=== PATIENT | female | born 1950 | race Caucasian/White ===

== ENCOUNTER → 2024-04-26 06:14 | Outpatient (REF) | payer MEDICARE, OTHER, SELFPAY ==
[2024-04-26 10:00] LABS: % Basophils 0.9 % (0-2); % Eosinophils 1.5 % (0-6); % Immature Granulocytes 0.5 % (0-0.5); % Lymphocytes 44.5 % (20.5-51.1); % Monocytes 5.3 % (1.7-9.3); % Neutrophils 47.3 % (42.2-75.2); ALT (SGPT) 48 U/L (0-35); AST (SGOT) 33 U/L (14-36); Absolute Basophils 0.1 10^3/uL (0-0.2); Absolute Eosinophils 0.2 10^3/uL (0-0.7); Absolute Immature Granulocytes 0.1 10^3/uL (0-0.05); Absolute Lymphocytes 4.8 10^3/uL (1.2-3.4); Absolute Monocytes 0.6 10^3/uL (0.1-0.6); Absolute Neutrophils 5.1 10^3/uL (1.4-6.5); Alkaline Phosphatase 68 U/L (38-126); Blood Urea Nitrogen 17 mg/dl (7-17); Carbon Dioxide 21 mmol/L (22-30); Chloride 98 mmol/L (98-107); Glucose 185 mg/dl (70-99); HDL Cholesterol 58 mg/dl; Hematocrit 39.9 % (37.0-47.0); Hemoglobin 13.6 g/dL (12.0-16.0); LDL Cholesterol, Calculated 46 mg/dl; Mean Corp Hgb Conc. 34.1 g/dL (33.0-37.0); Mean Corpuscular Hgb 28.7 pg (27.0-31.0); Mean Corpuscular Volume 84.2 fL (81.0-99.0); Mean Platelet Volume 9.3 fL (7.4-10.4); Nucleated Red Blood Cells % 0 %; Platelet Count 422 10^3/uL (130-400); Potassium 4.7 mmol/L (3.5-5.1); Red Blood Cell Count 4.74 10^6/uL (4.20-5.40); Red Cell Dist. Width 13.1 % (11.5-14.5); Sodium 133 mmol/L (135-145); Total Bilirubin 0.4 mg/dl (0.2-1.3); Total Cholesterol 129 mg/dl (50-199); Total Protein 7.6 g/dl (6.3-8.2); Triglyceride 125 mg/dl (10-149); Very Low Density Lipoprotein 25 mg/dl (0-30); White Blood Cell Count 10.7 10^3/uL (4.8-10.8); eGFR > 60.00
[2024-04-26 10:41] LABS: Microalbumin, Random Urine 0.9 mg/dl (0.6-1.7); Microalbumin/creatinine Ratio 18.8 mg/g
[2024-04-26 10:49] LABS: Glycohemoglobin (HgbA1c) 7.7 % (4.0-5.6)
== END ==
LOC: HWLAB 06:14
PROVIDERS: ATTENDING PHYSICIAN Internal Medicine
DX: Z85.828 Personal history of other malignant neoplasm of skin (principal); Z12.11 Encounter for screening for malignant neoplasm of colon; E11.9 Type 2 diabetes mellitus without complications; E78.5 Hyperlipidemia, unspecified
CPT/HCPCS: 36415; 80053; 80061; 82043; 82570; 83036; 85025

== ENCOUNTER → 2024-11-01 07:55 | Outpatient (REF) | payer MEDICARE, OTHER, SELFPAY ==
[2024-11-01 09:34] LABS: ALT (SGPT) 38 U/L (0-35); AST (SGOT) 33 U/L (14-36); Albumin 4.9 g/dl (3.5-5.0); Alkaline Phosphatase 64 U/L (38-126); Blood Urea Nitrogen 15 mg/dl (7-17); Calcium 9.5 mg/dl (8.4-10.2); Carbon Dioxide 22 mmol/L (22-30); Chloride 94 mmol/L (98-107); Glucose 184 mg/dl (70-99); HDL Cholesterol 50 mg/dl; LDL Cholesterol, Calculated 28 mg/dl; Potassium 4.6 mmol/L (3.5-5.1); Sodium 130 mmol/L (135-145); Total Bilirubin 0.4 mg/dl (0.2-1.3); Total Cholesterol 100 mg/dl (50-199); Total Protein 7.5 g/dl (6.3-8.2); Triglyceride 114 mg/dl (10-149); Very Low Density Lipoprotein 22 mg/dl (0-30); eGFR > 60.00
[2024-11-01 10:23] LABS: Glycohemoglobin (HgbA1c) 9.8 % (4.0-5.6)
== END ==
LOC: HWLAB 07:55
PROVIDERS: ATTENDING PHYSICIAN Internal Medicine
DX: E78.5 Hyperlipidemia, unspecified (principal); E11.9 Type 2 diabetes mellitus without complications
CPT/HCPCS: 36415; 80053; 80061; 83036

== ENCOUNTER → 2024-11-02 12:25 | Outpatient (REF) | payer MEDICARE, OTHER, SELFPAY | LOC: HWRAD 12:25 | PROVIDERS: ATTENDING PHYSICIAN Internal Medicine | DX: E87.1 Hypo-osmolality and hyponatremia (principal) | CPT/HCPCS: 71046 ==

== ENCOUNTER → 2024-12-07 08:39 | Outpatient (REF) | payer MEDICARE, OTHER, SELFPAY ==
[2024-12-07 12:59] LABS: Osmolality Serum 272 mOsm/kg (275-300)
[2024-12-07 13:10] LABS: Blood Urea Nitrogen 17 mg/dl (7-17); Calcium 9.2 mg/dl (8.4-10.2); Carbon Dioxide 21 mmol/L (22-30); Chloride 95 mmol/L (98-107); Glucose 170 mg/dl (70-99); Potassium 4.5 mmol/L (3.5-5.1); Sodium 128 mmol/L (135-145); eGFR > 60.00
[2024-12-07 13:24] LABS: Osmolality Urine 307 mOsm/kg (300-900)
== END ==
LOC: HWLAB 08:39
PROVIDERS: ATTENDING PHYSICIAN Internal Medicine
DX: E87.1 Hypo-osmolality and hyponatremia (principal); M54.16 Radiculopathy, lumbar region
CPT/HCPCS: 36415; 72110; 80048; 83930; 83935

== ENCOUNTER → 2024-12-09 09:40 | Outpatient (REF) | payer MEDICARE, OTHER, SELFPAY | LOC: HWRAD 09:40 | PROVIDERS: ATTENDING PHYSICIAN Internal Medicine | DX: M81.0 Age-related osteoporosis without current pathological fracture (principal); Z12.31 Encounter for screening mammogram for malignant neoplasm of breast | CPT/HCPCS: 77063; 77067; 77080 ==

== ENCOUNTER → 2024-12-17 08:33 | Outpatient (REF) | payer MEDICARE, OTHER, SELFPAY ==
[2024-12-17 12:09] LABS: Sodium 131 mmol/L (135-145)
== END ==
LOC: HWLAB 08:33
PROVIDERS: ATTENDING PHYSICIAN Internal Medicine
DX: E87.1 Hypo-osmolality and hyponatremia (principal)
CPT/HCPCS: 36415; 84295

== ENCOUNTER → 2024-12-23 11:55 | Outpatient (REF) | payer MEDICARE, OTHER, SELFPAY ==
[2024-12-23 15:33] LABS: Blood Urea Nitrogen 28 mg/dl (7-17); Calcium 10.5 mg/dl (8.4-10.2); Carbon Dioxide 25 mmol/L (22-30); Chloride 100 mmol/L (98-107); Glucose 117 mg/dl (70-99); Potassium 4.7 mmol/L (3.5-5.1); Sodium 137 mmol/L (135-145); eGFR > 60.00
[2024-12-23 15:50] LABS: Urine Sodium 74 mmol/L (30-90)
[2024-12-23 16:02] LABS: Cortisol, Random 7.3 ug/dl; TSH Reflex To Free T4 2.91 uIU/ml (0.47-4.68)
[2024-12-26 01:33] LABS: Aldosterone, Serum 6.3 ng/dL
== END ==
LOC: HWLAB 11:55
PROVIDERS: ATTENDING PHYSICIAN Internal Medicine Nephrology; FAMILY PHYSICIAN Internal Medicine
DX: E87.1 Hypo-osmolality and hyponatremia (principal)
CPT/HCPCS: 36415; 80048; 82088; 82533; 84300; 84443

== ENCOUNTER → 2025-03-25 06:51 | Outpatient (REF) | payer MEDICARE, OTHER, SELFPAY | LOC: HWRAD 06:51 | PROVIDERS: ATTENDING PHYSICIAN Internal Medicine Gastroenterology; FAMILY PHYSICIAN Internal Medicine | DX: K76.0 Fatty (change of) liver, not elsewhere classified (principal) | CPT/HCPCS: 76700 ==

== ENCOUNTER → 2025-06-15 08:17 | Outpatient (REF) | payer MEDICARE, OTHER, SELFPAY ==
[2025-06-15 10:54] LABS: Blood Urea Nitrogen 19 mg/dl (7-17); Calcium 9.9 mg/dl (8.4-10.2); Carbon Dioxide 24 mmol/L (22-30); Chloride 100 mmol/L (98-107); Glucose 163 mg/dl (70-99); Potassium 4.9 mmol/L (3.5-5.1); Sodium 134 mmol/L (135-145); eGFR > 60.00
[2025-06-15 11:16] LABS: Glycohemoglobin (HgbA1c) 7.7 % (4.0-5.6)
== END ==
LOC: HWLAB 08:17
PROVIDERS: ATTENDING PHYSICIAN Internal Medicine Nephrology; FAMILY PHYSICIAN Internal Medicine
DX: E87.1 Hypo-osmolality and hyponatremia (principal); E11.65 Type 2 diabetes mellitus with hyperglycemia
CPT/HCPCS: 36415; 80048; 83036

== ENCOUNTER 2025-06-24 06:20 | Day surgery (SDC) | payer MEDICARE, OTHER, SELFPAY ==
[2025-06-24 07:19] LABS: Glucose - Point of Care 166 mg/dl (70-99)
== END 2025-06-24 09:07 | disposition home or self-care (01) ==
LOC: GI 06:20
PROVIDERS: ATTENDING PHYSICIAN Internal Medicine Gastroenterology; FAMILY PHYSICIAN Internal Medicine
DX: Z12.11 Encounter for screening for malignant neoplasm of colon (principal); D12.3 Benign neoplasm of transverse colon; K63.5 Polyp of colon; K63.89 Other specified diseases of intestine; K57.30 Diverticulosis of large intestine without perforation or abscess without bleeding
CPT/HCPCS: 45385; 45380; 82962; 88305

== ENCOUNTER → 2025-06-27 09:04 | Outpatient (REF) | payer MEDICARE, OTHER, SELFPAY ==
--- NOTE | 2025-06-28 12:20 | PN.DIAED04 ---
Education Record
- Education Record
Class Attended: Other (Initial DSME Asseessment)
Instructor: Nurse Practitioner (HETAL Solorio)
Pre-Program Knowledge: Needs review / Assistance
Pre-Test Score (%): 70
Goals
- Goal 1
Being Active: Other (Add resistance workouts with a marine mammal trainer at gym )
Healthy Eating: Make better food choices, Reduce portion sizes
Monitoring: Monitor more often (add in extra glucose readings to identify areas where glucose may be elevated)
Goals To Be Evaluated: Other. Make better food choices. Reduce portion sizes. Monitor more often
Post-Program Assessment
- Goals 1 Evaluation
Goals To Be Evaluated: other
- Goals 2 Evaluation
Goals To Be Evaluated: Make better food choices. Reduce portion sizes
- Goals 3 Evaluation
Goals To Be Evaluated: Monitor more often
--- NOTE | 2025-06-28 12:24 | PN.DIAED14 ---
This is to notify you that your patient with diabetes, DORA TAVAREZ ( 1950), has enrolled in our diabetes self-management classes that are being held at [facility].
These classes will include an introduction to diabetes, diet, medication, exercise and prevention of complications. At the end of our class series, you will receive a report of your patient's participation and progress for your records.
Please contact me at the Diabetes Center, , if there is any particular information regarding your patient that might be helpful to me.
Sincerely,
Tyler FONG-LEILA, [facility]
--- NOTE | 2025-06-28 12:24 | PN.DIAED04 ---
Education Record
- Education Record
Class Attended: Class 1
DSME Class Series Code: [id number]
Instructor: Nurse Practitioner (HETAL Solorio)
Class Curriculum:
Outpatient Diabetes Education Program:
Class 1 (120 minutes)
Describe the diabetes disease process and treatment options
Diabetes management
Develop personal strategies to promote health and behavior change
Integrate psychosocial adjustment for daily living
Monitor blood glucose and other parameters. Interpret and use the results for self-management decision making
Prevent, detect, and treat acute complications
Class Length (mins): 120
Post-Class 1 Test Score (%): 88
--- NOTE | 2025-06-29 17:02 | PN.DIAED02 ---
Referral
DSME Class Series Code: [id number]
Referred For: Diabetes Self-Management Training, Gestational Diabetes Self-Management Training, Management of Diabetes During , Medical Nutrition Therapy, Self-Blood Glucose Monitoring, Long-Term Complication Instruction, Accute
Complication Instruction, Continuous Glucose Monitoring, Medication management, Insulin Instruction, Care Coordination, Disease Management
PHI Release Authorization Form Signed: Yes
Demographic
Patient's primary language-: Yemeni
Education: College degree
Occupation: Retired
- Social
Primary Support Person: Self
Primary Care Takers: Self
Living Arrangements: Self
- Learning Methods
Preferred Method: Lecture/audio, Hands-on demonstration, Group discussion
Barriers to Learning: None
Glycemic Control
- Blood Glucose Monitoring Assessment
Date: 11/01/24 (185 mg/dL FBS)
Blood glucose monitoring at home: Yes (ACCUCHEK GUIDE)
Monitor Brands: Accu-Chek
Frequency: 2x per day
Time: fasting, after lunch, before dinner
- Hypoglycemia Assessment
Patient carries glucose source: No
Patient experiences hypoglycemia: No
- Blood Glucose Monitoring Results
Source: self-report (states FBS < 130 mg/dL and post prandial < 100 mg/dL)
- Hemoglobin A1c
Date: 11/01/24
A1C Percentage (%): 9.8
Medical History of Diabetes
Family Diabetes History: Mother, Father
Previous Diabetes Education: No
Previous visit with Dietitian: No
Complications/Comorbidity/Specialist: Cataracts, Hypertension (Valsartan 160 mg QD), Hyperlipidemia (Simvastatin 40 mg QD), Metabolic (Repaglinide 0.5 mg TID), Other / symptoms (hyponatremia - current fluid restriction 32 oz/day)
Measures
- Anthropometrics
Height: 5 ft 1 in
Actual Weight: 147 lb
- Blood Pressure / Pulse
Blood pressure: 136/84
Pulse: 81
- Diabetes Management
Medical Management for Diabetes: Complete physical exam (11/02/2024), Dental exam (08/12/2024), Dilated eye exam (12/07/2024), Pneumonia vaccination (01/23/2022), Other (Covid vax 03/08/2022)
Self-Care
- Tobacco Usage
Do you now, or have you ever smoked?: Never smoked
- Alcohol & Drugs Usage
Drinks Alcohol: Yes
Amount/day: Social Occasions
- Meals & Dining
Meals & Dining: Patient skips meals: Yes, Food Intolerance / Allergy: No, Cultural / Tenriism Dietary Needs: No
Primary Food Power Line Installer: Self
Primary Amusement Equipment Operator: Self
Dining Out Frequency: 1-3x per week
- Physical Activity
Physical Limitation: Yes (bilateral knee pain)
Patient participates in physical Activity: Yes
Activity Types: Swimming
Duration: > 50 minutes
Frequency: 3-5x per week (5 days/week, (2) 45 min water aerobic classes)
- Patient-Self Assessment
Diabetes Knowledge: Fair
Feelings About Diabetes: Acceptance
General Health: Good
Importance of Health: Extremely
Stress Level: Low
Diabetes Interferes With:: Nothing
Barriers to Diabetes Management: Nothing
Depression Survey Score: 0
- Diabetes Identification
Carries Diabetes Identification: No
Diabetes Identification Information Provided: Yes
Care Plan
- Education Needs
Patient Education Needs: Diabetes disease process, Chronic complications, Acute complications, Medication, Monitoring, Physical activity, Psychosocial Adjustment, Nutritional management, Goal setting & problem solving
Recommended Diabetes Training Program based on assessment: Outpatient Diabetes Education Program
- Plan of Care
Plan of Care:
12/22/2024 Radha presented for her initial DSME assessment. She will be traveling to [place] for the next month and will not be available for January session. She has had T2D for 3 years, was taking Metformin 200 mg daily. Due to increased HbA1c
(9.8% October 2024), her PCP added Repaglinide 0.5 mg TID 2 weeks ago. MFN was d/c 1 week ago by her PCP as she developed hyponatremia. She is currently on a fluid restriction of 32oz per day, will see nephrology tomorrow. Radha has an AccuChek
Guide glucometer, checks BID. She reports glucose levels < 10 mg/dL fasting and , 100 mg/dL 2 hours post meals. I recommended she increase her checks throughout the day to capture where her readings may be on the higher range. Radha is active
and has been doing approximately 90 min of water aerobics 5/week. We discussed adding resistance workouts in with a application trainer as a goal. Nutrition was reviewed and I provided Radha with a carbohydrate booklet as she stated she was concerned about
making healthy food choices while being away. I encouraged Radha to contact the office with any questions or concerns.
== END ==
LOC: DES 09:04
PROVIDERS: ATTENDING PHYSICIAN Internal Medicine
DX: E11.9 Type 2 diabetes mellitus without complications (principal)
CPT/HCPCS: 99078

== ENCOUNTER → 2025-07-04 09:26 | Outpatient (REF) | payer MEDICARE, OTHER, SELFPAY ==
--- NOTE | 2025-07-05 10:19 | PN.DIAED04 ---
Education Record
- Education Record
Class Attended: Class 2
DSME Class Series Code: [id number]
Instructor: Registered Dietitian (Christina Cavanaugh, RD, LDN, CDE)
Class Curriculum:
Outpatient Diabetes Education Program:
Class 2 (120 minutes)
Incorporate nutritional management into lifestyle
Understanding nutritional value
Understanding carbohydrate counting
Class Length (mins): 120
== END ==
LOC: DES 09:26
PROVIDERS: ATTENDING PHYSICIAN Internal Medicine
DX: E11.9 Type 2 diabetes mellitus without complications (principal)
CPT/HCPCS: 99078

== ENCOUNTER → 2025-07-11 09:33 | Outpatient (REF) | payer MEDICARE, OTHER, SELFPAY | LOC: DES 09:33 | PROVIDERS: ATTENDING PHYSICIAN Internal Medicine | DX: E11.9 Type 2 diabetes mellitus without complications (principal) | CPT/HCPCS: 99078 ==

== ENCOUNTER → 2025-07-13 14:44 | Outpatient (REF) | payer MEDICARE, OTHER, SELFPAY | LOC: MRI 14:44 | PROVIDERS: ATTENDING PHYSICIAN Internal Medicine Gastroenterology; FAMILY PHYSICIAN Internal Medicine | DX: K76.0 Fatty (change of) liver, not elsewhere classified (principal) | CPT/HCPCS: 74181; 76391 ==

== ENCOUNTER → 2025-07-18 09:49 | Outpatient (REF) | payer MEDICARE, OTHER, SELFPAY | LOC: DES 09:49 | PROVIDERS: ATTENDING PHYSICIAN Internal Medicine | DX: E11.9 Type 2 diabetes mellitus without complications (principal) | CPT/HCPCS: 99078 ==

== ENCOUNTER → 2025-07-25 09:05 | Outpatient (REF) | payer MEDICARE, OTHER, SELFPAY ==
--- NOTE | 2025-07-27 08:39 | PN.DIAED04 ---
Education Record
- Education Record
Class Attended: Class 5
DSME Class Series Code: [id number]
Instructor: Registered Nurse (Cheryl Moses RN)
Class Curriculum:
Outpatient Diabetes Education Program:
Class 5 (120 minutes)
Prevent, detect, and treat acute complications
Prevent, detect, and treat chronic complications through risk reduction
Develop personal strategies to address psychosocial issues and concerns
Development of diabetes self-management support plan
Letter to physician with DSMS plan attached sent
Class Length (mins): 120
Post-Program Knowledge: Demonstrates competency
Post-Test Score (%): 83
Post-Program Assessment
- Post-Program Assessment
Actual Weight: 152 lb
Blood pressure: 110/78
Post-Program Depression Survey Score: 0
Reviewing Previous Goals?: Yes
Pre-Program Depression Survey Score: 0
- Goals 1 Evaluation
Goals To Be Evaluated: Add in working with first aid trainer at gym
- Goals 2 Evaluation
Goals To Be Evaluated: Make better food choices. Reduce portion sizes
- Goals 3 Evaluation
Goals To Be Evaluated: Monitor more often
--- NOTE | 2025-07-27 08:41 | PN.DIAED16 ---
This is to notify you that your patient with diabetes, DORA TAVAREZ ( 1950), has attended the entire series of Diabetes Self-Management Education Classes.
Class 1 (120 minutes): Diabetes Overview - monitoring, stress/psychosocial adjustment, support, goal setting
Class 2 (120 minutes): Meal Planning - serving sizes, menu plans
Class 3 (120 minutes): Introduction to Carbohydrate Counting, Analyzing Food Labels
Class 4 (120 minutes): Medication, Exercise and Activity
Class 5 (120 minutes): Sick Day Management, Strategies to Reduce Complications, Problem Solving, Resources
The following behavioral goals were identified:
Add in working with software trainer at gym
Make better food choices. Reduce portion sizes
Monitor more often
A follow-up call will be made within three to six months to evaluate attainment of these goals and to check post-program Hemoglobin A1c and overall progress. All class participants are encouraged to contact me if I can be any further assistance in
learning how to manage their diabetes.
Sincerely,
Tyler FONG-, [facility]
== END ==
LOC: DES 09:05
PROVIDERS: ATTENDING PHYSICIAN Internal Medicine
DX: E11.9 Type 2 diabetes mellitus without complications (principal)
CPT/HCPCS: 99078